=== PATIENT | female | born 1960 | race Caucasian/White ===

== ENCOUNTER → 2016-11-15 | Outpatient (CLI) | payer OTHER ==
[~2016-11-15] MED LIST: ALBU8.5H5 IH; CALC500T PO; CRAN400C PO; ESTR0.5T PO; LISI-338 PO; MAGN400C PO; TRAM50TA PO; ZOLP5TAB PO
--- NOTE | 2016-11-15 09:59 | EKG ---
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
[2016-11-15 10:24] LABS: BASO # 0.1 x10^3/uL (0.0-0.2); BASO % 1 % (0-3); EOS % 2 % (0-3); HEMATOCRIT 39.1 % (36.0-47.0); HEMOGLOBIN 13.3 g/dL (12.0-15.5); LYMPH # 1.5 x10^3/uL (1.0-4.8); LYMPH % 24 % (24-48); MEAN CORPUSCULAR HEMOGLOBIN 32 pg (25-35); MEAN CORPUSCULAR HGB CONC 34 g/dL (31-37); MEAN CORPUSCULAR VOLUME 92 fL (79-100); MONO % 7 % (0-9); NEUT % 67 % (31-73); PLATELET COUNT 185 x10^3/uL (140-400); RED BLOOD COUNT 4.24 x10^6/uL (3.50-5.40); RED CELL DISTRIBUTION WIDTH 13.1 % (11.5-14.5); WHITE BLOOD COUNT 6.3 x10^3/uL (4.0-11.0)
[2016-11-15 10:41] LABS: ALBUMIN 3.9 g/dL (3.4-5.0); ALBUMIN/GLOBULIN RATIO 1.3 (1.0-1.7); CALCIUM 9.5 mg/dL (8.5-10.1); CREATININE 0.7 mg/dL (0.6-1.0); GFR 87.2; POTASSIUM 3.9 mmol/L (3.5-5.1); TOTAL BILIRUBIN 0.3 mg/dL (0.2-1.0); TOTAL PROTEIN 6.8 g/dL (6.4-8.2)
== END | disposition home or self-care (01) ==
LOC: SURGPAT 09:04
PROVIDERS: ATTEND Neurological Surgery
DX: M43.12 Spondylolisthesis, cervical region (principal); M47.892 Other spondylosis, cervical region
CPT/HCPCS: 36415; 80053; 85027; 87641; 93005

== ENCOUNTER 2016-11-25 07:12 | Observation (INO) | payer OTHER ==
--- NOTE | 2016-11-22 18:05 | PREOP HP ---
DATE OF SERVICE: HISTORY OF PRESENT ILLNESS: The patient is a pleasant 55-year-old, who continues to notice pain in her neck with radiation to both of her shoulders. There is pain in the anterior scapular region. If she bend her head forward, she feels a sharp pain in her neck. She continues to have restricted feeling in her neck. The problem started in September 2015. When I initially saw her in March 2016, she was complaining of neck pain, which radiated into her left arm. The left arm pain improved. When I saw in 09/2016, she had pain in her neck, which is greater on the right hand side along with numbness in both of her hands. The pain can radiate up into her head. She says that the numbness in her hands and the pain in her arms have improved. She notes principally severe pain in her neck, which is worse when she bends her head forward and can become very severe pain along with pains in both of her shoulders and anterior scapular region. She has difficulty with her daily activities. She has difficulty turning her head because of the severe pain. She has undergone 2 cervical epidural steroid injections, which she said gave her no lasting relief with ____ neck pain. She is very concerned by a feeling of tightness in her neck and says when that becomes severe, her voice becomes worse. She was evaluated by an ENT. No significant problem was found. She does not notice weakness in her extremities. The principal problem is pain. PAST MEDICAL HISTORY: Asthma. PAST SURGICAL HISTORY: Appendectomy in 1998, hysterectomy in 1998, foot surgery in 2004, foot surgery in 2014 and breast augmentation in 1999. FAMILY HISTORY: No family history documented. SOCIAL HISTORY: She is . Exercises weekly by walking. Employed as a ____. Denies tobacco use. Drinks coffee, tea and soda. ALLERGIES: No known drug allergies. CURRENT MEDICATIONS: Estradiol, acetaminophen, ibuprofen and tramadol. REVIEW OF SYSTEMS: A 12-point review of systems was obtained and is noncontributory except for that mentioned above. PHYSICAL EXAMINATION: NEUROSURGERY EXAMINATION: GENERAL APPEARANCE: Alert, pleasant, in moderate distress because of the neck and shoulder pain. HEENT: Head normocephalic and atraumatic. NECK AND THYROID: Moderate tenderness with palpation of posterior cervical region. SKIN: Warm and dry. MUSCULOSKELETAL: Cervical paraspinal muscle bulk is normal, restricted range of motion of the cervical spine, normal range of motion of the upper extremities bilaterally. EXTREMITIES: No clubbing, cyanosis, or edema. NEUROLOGIC: Alert and oriented x 3, normal recent and remote memory, strength 5/5 in bilateral upper and lower extremities, sensory was intact to light touch in the upper and lower extremities, reflexes were present and symmetric in the upper and lower extremities bilaterally, normal gait. IMAGING: Reviewed. I reviewed new cervical MRI scan as well as cervical flexion and extension views with the patient and her . On the cervical MRI scan, there is moderate left foraminal narrowing at C4-C5. There is mild bilateral foraminal narrowing at C5-C6. There is severe left foraminal narrowing and mild right foraminal narrowing at C6-C7. On the cervical flexion and extension films, there is considerable spondylosis in the cervical region present. There is motion at C4-C5 on flexion and extension films with 3 mm retrolisthesis developing on extension. There is slight lateral retrolisthesis present at C5-C6. I did not see motion at C5-C6 and flexion and extension, however. ASSESSMENT: 1. Spondylolisthesis, cervical region. 2. Spinal stenosis, cervical region. 3. Other spondylosis with radiculopathy, cervical region. PLAN: Incapacitated because of the neck and shoulder pain. She has had radicular pain which waxes and wanes. There are significant problems on imaging studies with the motion at C4-C5 and neural foraminal narrowing present at C4-C5 and C6-C7. Surgery alone at C4-C5 may help to a degree of the problem is C6-C7 will need to be addressed. Additionally, there is an element of foraminal narrowing bilaterally at C5-C6. I spent a considerable amount of time reviewing her problems and discussing the situation with the patient and her . At this point, my recommendation would be to perform a fairly extensive surgery and attempt to help her, which was consistent 3-level anterior cervical diskectomy and fusion from C4-C5 through C6-C7. I did discuss this surgery in detail and outlined the risks sensibly with both of them. I spoke about stroke as well as injury to the esophagus and trachea as well as paralysis. I spoke about infection as well as the risk of anesthesia. I also discussed the possibility of hoarseness with this approach. I explained that this could be prominent if it occurred. I also explained that we can put the patient through surgery and she may be no better. I explained that I did not know whether surgery ____ complaints including the tightness. She feels that her throughout with her activities in ____. They understand. They would like to proceed. We will make the arrangements. KELSEA BARAHONA MD DR: SAMMY/omid JOB#: [id number] / [id number]
[~2016-11-25] VITALS: Ht 167.6 cm; Wt 65.8 kg
[2016-11-25] VITALS (9 sets, daily range): BP systolic 93–147; BP diastolic 53–107
[~2016-11-25 07:12] MED LIST changes: +BACITRACIN 50,000 UNIT in IV NORMAL SALINE 1000ML BAG 1,000 ML IRR ONE; +CEFAZOLIN 2GM PREMIX 50 ML IV PRN; +FENTANYL PF 100 MCG/2 ML VIAL. IV PRN; +LIDOCAINE 1% 1 ML SYRINGE. ID PRN; +ONDANSETRON PF 4 MG/2 ML VIAL. IV PRN; +PROCHLORPERAZINE 10 MG/2 ML VIAL. IV PRN
[2016-11-25] MEDS ORDERED: FAMO20TA5 PO (07:34)
[2016-11-25] MEDS ORDERED: BUPIVAC MPF-EPI 0.5%-1:200000 30 ML VIAL. ONE (07:44)
[2016-11-25] MEDS ORDERED: THROMBIN 20,000 UNIT SPRAY.SYRN KIT TP ONE (07:44)
[2016-11-25] MEDS ORDERED: GELATIN SPONGE SIZE 100. ONE (07:44)
[2016-11-25] MEDS: IV RINGERS,LACTATED 1000ML 1,000 ML IV SCH ×2 (07:47→14:15)
[2016-11-25] MEDS ORDERED: MIDAZOLAM HCL 2 MG/2 ML VIAL. ONE (08:17)
[2016-11-25] MEDS ORDERED: FENTANYL PF 100 MCG/2 ML VIAL. ONE (08:17)
[2016-11-25] MEDS ORDERED: REMIFENTANIL 2 MG VIAL. IV ONE (08:17)
[2016-11-25] MEDS ORDERED: GLYCOPYRROLATE 1 MG/5 ML VIAL. ONE (08:17)
[2016-11-25] MEDS ORDERED: ROCURONIUM 50 MG/5 ML VIAL. ONE (08:17)
[2016-11-25] MEDS ORDERED: LIDOCAINE 2% 100 MG/5 ML DISP.SYRIN. ONE (08:18)
[2016-11-25] MEDS ORDERED: PROPOFOL 50 ML IV ONE ×2 (08:18→10:29)
[2016-11-25] MEDS ORDERED: ONDANSETRON PF 4 MG/2 ML VIAL. ONE (08:18)
[2016-11-25] MEDS ORDERED: PROPOFOL 20 ML IV ONE (08:18)
[2016-11-25] MEDS ORDERED: ISOFLURANE > 120 MINUTES. IH ONE (08:18)
[2016-11-25] MEDS ORDERED: PHENYLEPHRINE 10 MG/ML VIAL. ONE (08:18)
[2016-11-25] MEDS ORDERED: DEXAMETHASONE SOD PHOS 20 MG/5 ML VIAL. ONE (08:18)
[2016-11-25] MEDS ORDERED: SCOPOLAMINE 1.5MG PATCH. TD ONE ×2 (08:37→08:45)
[2016-11-25] MEDS ORDERED: ACETAMINOPHEN INTRAVENOUS 100 ML IV ONE (08:39)
[2016-11-25] MEDS: FENTANYL PF 100 MCG/2 ML VIAL. IV PRN ×8 (12:05→21:12)
[2016-11-25] MEDS: POTASSIUM CL 20MEQ D5-0.45NACL 1,000 ML IV SCH (12:21)
[2016-11-25] MEDS ORDERED: TRAMADOL 50 MG TABLET. PO PRN (12:30)
[2016-11-25] MEDS ORDERED: HYDROCODONE/APAP 7.5/325MG TABLET. PO PRN (12:30)
[2016-11-25] MEDS ORDERED: MAGNESIUM HYDROXIDE 2,400 MG/30 ML ORAL.SUSP. PO PRN (12:30)
[2016-11-25] MEDS ORDERED: FENTANYL PF 100 MCG/2 ML VIAL. IV PRN (12:30)
[2016-11-25] MEDS ORDERED: CALCIUM CARBONATE 500 MG TAB.CHEW PO PRN (12:30)
[2016-11-25] MEDS ORDERED: DIPHENHYDRAMINE 50 MG/ML VIAL IV PRN (12:30)
[2016-11-25] MEDS ORDERED: ALBUTEROL SULFATE 2.5 MG/3 ML NEBU. NEB PRN (12:30)
[2016-11-25] MEDS ORDERED: ONDANSETRON PF 4 MG/2 ML VIAL. IV PRN (12:30)
[2016-11-25] MEDS ORDERED: MAG HYDROX/ALUMINUM HYD/SIMETH 30 ML ORAL.SUSP PO PRN (12:30)
[2016-11-25] MEDS ORDERED: ACETAMINOPHEN 325 MG TABLET. PO PRN (12:30)
[2016-11-25] MEDS ORDERED: DIPHENHYDRAMINE HCL 25 MG CAPSULE PO PRN (12:30)
[2016-11-25] MEDS ORDERED: 0.9 % SODIUM CHLORIDE 10 ML DISP.SYRIN. IV PRN (12:30)
[2016-11-25] MEDS ORDERED: ZOLPIDEM 5 MG TABLET. PO PRN (12:30)
[2016-11-25] MEDS: HYDROMORPHONE 2 MG/ML VIAL. IV PRN ×4 (12:37→13:25)
[2016-11-25] MEDS: MORPHINE SULFATE 2 MG/ML DISP.SYRIN. IV PRN ×4 (13:12→13:47)
[2016-11-25] MEDS ORDERED: MEPERIDINE PF 25 MG/ML VIAL. IV STA (14:01)
[2016-11-25] MEDS ORDERED: MEPERIDINE PF 25 MG/ML VIAL. ONE (14:04)
[2016-11-25] MEDS ORDERED: PROMETHAZINE IM 25 MG/ML VIAL IM ONE (14:04)
[2016-11-25] MEDS ORDERED: PROMETHAZINE 12.5 MG in IV NORMAL SALINE 50ML 50 ML IV ONE (14:30)
[2016-11-25] MEDS ORDERED: MEPERIDINE PF 25 MG/ML VIAL. IV PRN (14:30)
[2016-11-25] MEDS: METHOCARBAMOL 750 MG TABLET PO SCH ×2 (15:32→21:04)
[2016-11-25] MEDS: CEFAZOLIN SODIUM 1 GM in IV NORMAL SALINE 50ML 50 ML IV SCH (16:43)
[2016-11-25] MEDS: HYDROCODONE/APAP 7.5/325MG TABLET. PO PRN (17:59)
--- NOTE | 2016-11-25 18:34 | OP ---
DATE OF SURGERY: 11/25/2016 PREOPERATIVE DIAGNOSES: Cervical spondylosis with foraminal narrowing and cervical radiculopathy, C4-C5, C5-C6, C6-C7. POSTOPERATIVE DIAGNOSIS: Cervical spondylosis with foraminal narrowing and cervical radiculopathy, C4-C5, C5-C6, C6-C7. OPERATION PERFORMED: Anterior cervical microdiscectomy C4-C5, C5-C6, C6-C7; anterior cervical interbody fusion C4-C5, C5-C6, C6-C7; anterior cervical plate C4-C5, C6-C7 with interbody fusion cages packed with allograft and autograft bone. The operation was done with multimodality monitoring including EMG monitoring, SSEP monitoring, motor evoked potentials, NIMS monitoring, fluoroscopy, and microscopic dissection. SURGEON: Mark Barahona M.D. UTILITY HAND: Kenan Rivera MD assisted with surgery, assisted with the exposure, the microdiscectomy, interbody fusion as well as the closure. OPERATIVE INDICATIONS: The patient is a very pleasant 55-year-old woman who developed intractable neck and arm pain followed by severe neck pain and pain with interscapular region. She also noticed some tightness in her neck and was evaluated by ENT and these studies were found to be negative. Because of persistent severe pain, I recommended an anterior cervical microdiscectomy and fusion to the above mentioned levels after considerable time and conservative measures plus long discussions with the patient and her family. She understood the surgery as did her , she understood the risks including hoarseness, and failure to improve. She understood the technique of the operation and she wished to go ahead. DESCRIPTION OF PROCEDURE: Following general endotracheal anesthesia, the patient was positioned supine on the operating room table. The anterior cervical region was then prepped and draped in standard fashion. JUAN hose and AV impulse boots were applied for DVT prophylaxis. The microscope was draped, fluoroscopy was draped and brought into field, and monitoring was established. Ancef 2 g was given less than 1 hour prior to initiation of surgery. Using fluoroscopic guidance, incision was made over the C6-C7 interspace. I dissected down through the skin and subcutaneous tissue and passed around the medial aspect of the sternocleidomastoid and carotid artery sheath and then reflected the trachea and esophagus contralaterally and placed a Kirwin micro disc retractor. I brought in the microscope and placed the anterior cervical retractors attached with blades that are gently wedged in the longus colli muscles and placed 14 mm pins in C6 and C7 and brought in the microscope during this time and used microscopic technique. I used #11 blade to incise the anterior annulus. I performed a discectomy with pituitary rongeurs. I used a high speed drill and trimmed away the anterior spurring and saved this bone to mix with allograft bone for the fusion. I scraped away the cartilaginous endplate with the endplate scraper. I drilled the posterior bone spurring and then opened the posterior ligament and the annulus with a 1 and 2 mm micro Kerrisons to work laterally bilaterally. I distracted gently then fully opened the foramina such that I could easily pass a blunt hook. As I worked I obtained an excellent decompression. I measured and placed a 6 mm interbody fusion cage, which was packed with allograft and autograft bone and this was gently tapped into position after obtaining perfect hemostasis and laid a tiny piece of Gelfoam in each lateral corner and irrigated copiously. Then I removed the pin from C7 and moved it up to C5 and was retracted superiorly and performed the identical operation at C5-C6 and then again after completing this performed the identical operation at C4-C5. I used 6 mm interbody fusion cages at each level. I had perfect hemostasis prior to placement of interbody fusion cages. I did use a high speed drill at each level to trim the anterior spurring, and I did save the bone. Following this, then I placed a 56 mm anterior plate and I used the NuVasive system throughout. I placed a 13 mm screw superiorly and then placed screws inferiorly to align the plate and then worked from superior and inferior to be inferiorly to superiorly placing 13 mm screws and locking them. I removed the locking mechanism with the translating plate. I irrigated copiously with antibiotic solution. I removed the retractor and explored carefully. During this time, I did obtain multiple fluoroscopic images to assure myself at each level and I was in excellent position. Films at the end of the operation looked quite good showing the plate and fusion between C4 and C7. At this point, then I irrigated again and I again assured myself of perfect hemostasis. I closed the platysma as a separate layer and I closed the skin with subcuticular stitch. The operation went very well. The monitoring did improve with the decompression. I was quite pleased with the surgery. MARK BARAHONA MD DR: SAMMY/omid JOB#: [id number] / [id number] BHARATH
[2016-11-25] MEDS ORDERED: ZOLPIDEM 5 MG TABLET. PO SCH (21:00)
[2016-11-25] MEDS: DOCUSATE SODIUM 100 MG CAPSULE PO SCH (21:04)
[2016-11-26] MEDS: FENTANYL PF 100 MCG/2 ML VIAL. IV PRN ×3 (00:31→05:50)
[2016-11-26] MEDS: HYDROCODONE/APAP 7.5/325MG TABLET. PO PRN ×2 (00:32→08:17)
[2016-11-26] MEDS: CEFAZOLIN SODIUM 1 GM in IV NORMAL SALINE 50ML 50 ML IV SCH ×2 (01:32→11:18)
[2016-11-26] MEDS: POTASSIUM CL 20MEQ D5-0.45NACL 1,000 ML IV SCH (01:41)
[2016-11-26 03:03] VITALS: BP 99/67
[2016-11-26 07:00] VITALS: BP 101/55
[2016-11-26] MEDS ORDERED: LISINOPRIL 5 MG TABLET. PO SCH (09:00)
[2016-11-26] MEDS ORDERED: MAGNESIUM OXIDE 400 MG TABLET PO SCH (09:00)
[2016-11-26] MEDS: DOCUSATE SODIUM 100 MG CAPSULE PO SCH (09:00)
[2016-11-26] MEDS ORDERED: CALCIUM CARBONATE 500 MG TABLET PO SCH (09:00)
[2016-11-26] MEDS ORDERED: NON FORMULARY ITEM (Cranberry 400 MG) PO SCH (09:00)
[2016-11-26] MEDS ORDERED: FAMOTIDINE 20 MG TABLET. PO SCH (09:00)
[2016-11-26] MEDS ORDERED: ESTRADIOL 1 MG TABLET PO SCH (09:00)
--- NOTE | 2016-11-26 10:24 | DISCH ---
DISCHARGE INSTRUCTIONS Condition on Discharge Condition on Discharge: Stable Activity After Discharge Activity Instructions for Disc: Activity as tolerated, Avoid exertion Other activity instructions: no driving for at least 1 week Bathing Instructions: Shower-keep dressing dry Lifting Instructions after Dis: No heavy lifting, No pulling or pushing, Do not lift >10 pounds Diet after Discharge Additional Diet Restrictions: resume home diet Wound Incision Care Wound/Incision Care: Ice to area for comfort Other wound/incision instructi: may remove dressing in 48 hrs then may shower- no soaking Contacting the after DC Call your doctor for: Concerns you may have Follow-Up Follow up with: Dr. Barahona's nurse in 2 weeks [phone] KELSEA BARAHONA MD Nov 26, 2016 10:24
[2016-11-26] MEDS ORDERED: DOCU-27 PO (10:28)
[2016-11-26] MEDS ORDERED: METH750T2 PO (10:28)
[2016-11-26] MEDS ORDERED: HYDR-2762 PO (10:28)
[2016-11-26 11:00] VITALS: BP 100/67
[2016-11-26] MEDS: METHOCARBAMOL 750 MG TABLET PO SCH (11:46)
--- NOTE | 2016-11-26 14:25 | PATHOLOGY ---
PATHOLOGY REPORT * * * * * * * * FINAL DIAGNOSIS: Segments of cartilaginous tissue and bone, cervical disc and decompression: - Degenerative changes of cartilaginous tissue. COMMENT: There is no evidence of an acute inflammatory process or malignancy. (JPM:rosio; d/t: 11/26/2016) REPORT ELECTRONICALLY SIGNED BY: Shon Griggs M.D. DATE/TIME: 11/26/2016 14:24 * * * * * * * * GROSS PATHOLOGY: Received in formalin labeled "Tomas Avila-cervical disc and decompression," are multiple segments of blood-tinged, white-lucas, rubbery, and gritty tissue admixed with possible bone measuring 3.3 x 2.8 x 0.5 cm in aggregate dimensions. The tissue is submitted representatively in cassette A1, following decalcification. (TTL:rosio; 11/25/2016) INITIAL CPT CODE(S): A; 46724, 37267 Professional services performed by [facility] [place] [address] Technical services performed by [facility] at [address] [place] [address]. SPECIMEN(S) RECEIVED: A.Cervical disc and decompression CLINICAL HISTORY: Radiculopathy, cervical stenosis, spondylolisthesis PATIENT: TOMAS AVILA /AGE: 3 1960 (Age: 55) PATIENT #: [id number] ALT CASE #: SPECIMEN COLLECTION DATE: 11/25/2016 SPECIMEN RECEIVED DATE: 11/25/2016 [facility] - [address] [place] [address] - PHONE: [phone] * * * END OF REPORT * * *
--- NOTE | 2016-11-26 20:11 | DS ---
DATE OF DISCHARGE: 11/26/2016 DISCHARGE DIAGNOSES: Cervical spondylosis with foraminal narrowing and cervical radiculopathy, C4-C5, C5-C6, C6-C7. OPERATION PERFORMED: Anterior cervical microdiskectomy and fusion C4-C5, C5-C6, C6-C7. HISTORY OF PRESENT ILLNESS: The patient is a pleasant 55-year-old woman who developed intractable neck and arm pain followed by severe neck and interscapular pain. She also noticed some tightness in her neck, which was evaluated by ENT and these studies were found to be negative. Because of persistent severe pain, I recommended an anterior cervical microdiskectomy and fusion. She understood the surgery as well as the risk and wished to proceed. HOSPITAL COURSE: She was admitted to the floor postoperatively where she did well. She is up ambulating in the room and in the halls. Physical therapy has been initiated and she has been instructed regarding her activities. Her pain is well controlled and she is in good condition to be discharged home. DISCHARGE MEDICATIONS: She will resume her medications per the EMR. DISCHARGE INSTRUCTIONS: She was instructed regarding incision care, activity restrictions and expectations for the next several weeks. She will follow up in our office in 2 weeks. She understands to call with any questions or concerns. KELSEA BARAHONA MD DR: CHEIKH/omid JOB#: [id number] / [id number]
== END 2016-11-26 12:25 | disposition home or self-care (01) ==
LOC: SURG 07:12 → EDUNIT# 09:15 → 4 NORTH 13:00
PROVIDERS: ADMIT Neurological Surgery; ATTEND Neurological Surgery
DX: M47.22 Other spondylosis with radiculopathy, cervical region (principal); M48.02 Spinal stenosis, cervical region; J45.909 Unspecified asthma, uncomplicated; M25.70 Osteophyte, unspecified joint; Z90.710 Acquired absence of both cervix and uterus
CPT/HCPCS: 20930; 20937; 22551; 22552; 22853; 76000; 88304; 88311; 96365; 96375; 96376; 97161; C1713; G0378; G0379; J0131; J0690; J1100; J1170; J2175; J2250; J2270; J2550; J2704; J3010; J3490; J7030; J2405; J7120

== ENCOUNTER → 2017-03-10 | Outpatient (CLI) | payer OTHER ==
[~2017-03-10] MED LIST changes: -ALBU8.5H5 IH; +ALBU8.5H8 IH; -BACITRACIN 50,000 UNIT in IV NORMAL SALINE 1000ML BAG 1,000 ML IRR ONE; -CEFAZOLIN 2GM PREMIX 50 ML IV PRN; +DOCU-109 PO; +FAMO20TA5 PO; -FENTANYL PF 100 MCG/2 ML VIAL. IV PRN; +HYDR-2762 PO; -LIDOCAINE 1% 1 ML SYRINGE. ID PRN; +METH750T2 PO; -ONDANSETRON PF 4 MG/2 ML VIAL. IV PRN; -PROCHLORPERAZINE 10 MG/2 ML VIAL. IV PRN
--- NOTE | 2017-03-10 15:55 | KCIC ---
MRI Thoracic Spine without contrast History: Thoracic radiculopathy, previous anterior cervical fusion, pain between shoulder blades Technique: Multiplanar, multi sequential noncontrast MR imaging was performed of the thoracic spine. Contrast: None Comparison: None Findings: Thoracic vertebral body stature and AP alignment are adequate. Thoracic cord caliber is within normal limits without convincing focal signal abnormality. There is no significant thoracic spinal stenosis at any level. There is no significant focal posterior disc abnormality of the thoracic spine. Thoracic neural foramina are overall adequate. There is mild diffuse heterogeneity of the marrow signal not associated with significant focal marrow edema. There is mild disc desiccation of mid thoracic levels such as T5-T6 and T6-T7. There are small more focal likely hemangiomas most notable at T5, T6, T10. As seen on the localizer, there is lumbar degenerative disc disease greatest at L2-3 and L4-5. There are multilevel shallow posterior bulges of the lumbar spine. Impression: 1. There is no significant thoracic spinal stenosis or neural foramina compromise. Electronically signed by: Chalino Hutchinson MD (03/10/2017 3:52 PM)
== END | disposition home or self-care (01) ==
LOC: KCIC MRI 14:36
PROVIDERS: ATTEND Neurological Surgery
DX: M54.14 Radiculopathy, thoracic region (principal); M51.36 Other intervertebral disc degeneration, lumbar region
CPT/HCPCS: 72146